=== PATIENT | male | born 1970 | race Caucasian/White ===

== ENCOUNTER 2018-11-03 03:03 | Emergency (ER) | payer OTHER ==
[~2018-11-03] VITALS: Ht 167.6 cm; Wt 75.5 kg
[2018-11-03 03:08] VITALS: Ht 167.6 cm; Wt 75.5 kg
[2018-11-03] MEDS ORDERED: ONDANSETRON (ODT) 4 MG TAB ODT STA (03:48)
[2018-11-03] MEDS ORDERED: SOD CHLORIDE 0.9% 1,000 ML IV STA (03:48)
[2018-11-03] MEDS ORDERED: FAMOTIDINE 20 MG INJ IV STA (03:48)
[2018-11-03] MEDS ORDERED: LIDOCAINE/MYLANTA 40 ML BTL PO STA (03:48)
--- NOTE | 2018-11-03 03:54 | ERD ---
ER Documentation Chief Complaint Chief Complaint DIARRHEA X 3 DAYS, VOMITING, FEVER HPI This is a 48-year-old male with a history of diabetes mellitus and high cholesterol who presents ED with complaints of nausea vomiting and diarrhea over the past 3 days. Patient states that he has had 12 episodes of diarrhea today and has had 2 episodes of vomiting over the past few days. Admits to abdominal cramping associated with nausea vomiting and diarrhea. Patient admits to feeling warm but has not taken temperature. Denies chills, hemoptysis, melena, hematochezia, constipation, hematemesis, chest pain, shortness of breath, and a ll other symptoms. No recent sick contact or recent travel. No mucus in stool. Patient is requesting antidiarrhea medication. Patient states that he has not taken his diabetes medication in 1 week. Patient is unsure what medications he is taking ROS All systems reviewed and are negative except as per history of present illness. Medications Home Meds Active Scripts Loperamide Hcl* (Imodium*) 2 Mg Capsule, 2 MG PO .AFTER EA LOOSE BM PRN for DIARRHEA, #10 TAB Prov:MAU GUERRERO PA-C 11/03/18 Dicyclomine HCl (Dicyclomine HCl) 10 Mg Capsule, 10 MG PO TID PRN for ABDOMINAL CRAMPING, #20 CAP Prov:MAU GUERRERO PA-C 11/03/18 Ondansetron (Ondansetron Odt) 4 Mg Tab.rapdis, 4 MG PO Q6H PRN for NAUSEA AND/OR VOMITING, #10 TAB Prov:MAU GUERRERO PA-C 11/03/18 FmHx Family History: No diabetes Physical Exam Vitals Vital Signs Date Temp Pulse Resp B/P (MAP) Pulse Ox O2 O2 Flow FiO2 Time Delivery Rate 11/03/18 98.8 94 16 132/87 98 03:08 (102) Physical Exam Physical Exam Vitals signs: Reviewed by me. General: Well developed, well nourished, in no acute distress. Patient is awake and alert. Head: Normocephalic, atraumatic. Eyes: Normal conjunctiva, Pupils PERRLA, EOM intact grossly ENT: Pharynx is clear, Moist mucous membranes, external ears, nose and mouth normal Neck: Supple, no masses, lymphadenopathy or JVD Respiratory: Clear to auscultation bilaterally with no wheezing, rhonchi, rales, no distress Cardiovascular: RRR, no murmurs, rubs, or gallops Abdominal: Soft, nondistended, no peritoneal signs, no rigidity, no surgical abdomen, bowel sounds present all 4 quadrants, nontender light deep palpation all 4 quadrants, McBurney's point nontender, no rebound tenderness, Draper sign negative Neurologic: Alert and oriented, moving all extremities, normal speech, no focal weakness, no cerebellar signs. Normal mentation Skin: warm and dry, No rash Psych: Normal mood Result Diagram: 11/03/1840311/03/18403 Results 24 hrs Laboratory Tests Test 11/03/18 04:04 White Blood Count 6.9 10^3/ul Red Blood Count 5.32 10^6/ul Hemoglobin 16.3 g/dl Hematocrit 45.4 % Mean Corpuscular Volume 85.3 fl Mean Corpuscular Hemoglobin 30.6 pg Mean Corpuscular Hemoglobin Concent 35.9 g/dl Red Cell Distribution Width 12.1 % Platelet Count 226 10^3/UL Mean Platelet Volume 11.7 fl Immature Granulocytes % 0.300 % Neutrophils % 65.6 % Lymphocytes % 11.6 % Monocytes % 10.4 % Eosinophils % 11.7 % Basophils % 0.4 % Nucleated Red Blood Cells % 0.0 /100WBC Immature Granulocytes # 0.020 10^3/ul Neutrophils # 4.5 10^3/ul Lymphocytes # 0.8 10^3/ul Monocytes # 0.7 10^3/ul Eosinophils # 0.8 10^3/ul Basophils # 0.0 10^3/ul Nucleated Red Blood Cells # 0.0 10^3/ul Sodium Level 139 mmol/L Potassium Level 4.1 mmol/L Chloride Level 103 mmol/L Carbon Dioxide Level 22 mmol/L Anion Gap 14 Blood Urea Nitrogen 17 mg/dl Creatinine 0.90 mg/dl Est Glomerular Filtrat Rate mL/min > 60 mL/min Glucose Level 216 mg/dl Calcium Level 9.2 mg/dl Total Bilirubin 1.6 mg/dl Direct Bilirubin 0.00 mg/dl Indirect Bilirubin 1.6 mg/dl Aspartate Amino Transf (AST/SGOT) 31 IU/L Alanine Aminotransferase (ALT/SGPT) 31 IU/L Alkaline Phosphatase 158 IU/L Total Protein 7.6 g/dl Albumin 4.4 g/dl Globulin 3.20 g/dl Albumin/Globulin Ratio 1.37 Lipase 51 U/L Current Medications Medications Dose Sig/Ashvin Start Time Status Last (Trade) Ordered Route PRN Stop Time Admin Dose Reason Admin Ondansetron 4 mg ONCE STAT 11/03/18 DC 11/03/18 HCl (Zofran ODT 03:48 04:01 Odt) 11/03/18 03:50 Dicyclomine 10 mg ONCE ONCE 11/03/18 DC 11/03/18 HCl PO 04:00 04:01 (Bentyl) 11/03/18 04:01 Sodium 1,000 ml @ Q1H STAT 11/03/18 DC 11/03/18 Chloride 1,000 mls/hr IV 03:48 04:01 11/03/18 04:47 Famotidine 20 mg ONCE STAT 11/03/18 DC 11/03/18 (Pepcid Iv) IV 03:48 04:01 11/03/18 03:50 40 ml ONCE STAT 11/03/18 DC 11/03/18 Miscellaneous PO 03:48 04:01 Medication 11/03/18 03:50 (Gi Cocktail (2)) Procedures/MDM LAB INTERPRETATION: Interpretation text CBC shows no evidence of hemorrhage or infection Chemistry shows no evidence of significant electrolyte abnormalities or renal insufficiency Liver function test shows a mildly elevated total bilirubin of 1.6, indirect bilirubin 1.6, alkaline phosphatase 158 but otherwise no evidence of acute biliary or hepatic dysfunction Lipase shows no evidence of acute pancreatitis ER COURSE: The patient was given GI cocktail, Pepcid, Zofran and IV fluids The medication was well tolerated and the patient reports improvement in symptoms. The patient was stable throughout ED course. I kept the patient and/or family informed of laboratory and diagnostic imaging results throughout the emergency room course. The patient was promptly evaluated and a treatment plan was devised based on H&P and other data. This plan was discussed with the patient who agreed and had no further questions or concerns prior to discharge. MEDICAL DECISION MAKING This is a 48-year-old male presents ED with complaints of nausea vomiting and diarrhea over the past few days. This is likely a gastroenteritis. Patient is resting peacefully in room and has moist mucous membranes and good skin turgor. Patient was given Zofran Pepcid and GI cocktail in the emergency department and reports feeling better.. Patient had no episodes of vomiting in the emergency department. Patient's abdomen is nontender to palpation during Examination and at discharge so i doubt gastro intestinal emergency. Patient is requesting anti diarrhea medication as he is having a hard time sleeping because he is having to get up to use the restroom so frequently. History and physical examination other data not consistent with emergent processes including but not limited to cholecystitis, appendicitis, small bowel obstruction, perforated viscus, among others. Patient's vitals are stable she can be managed with close outpatient follow-up. Advised patient to follow-up with primary care in 48 hours. Return to ED with any worsening symptoms DISPOSITION PLAN: We discussed follow up with the patient's primary care doctor within 24 to 48 hours. Patient counseled regarding my diagnostic impression and care plan. Prior to discharge all questions answered. Pt agrees with treatment plan and understands strict return precautions. Precautionary instructions provided including instructions to return to the ER if not improving or for any worsening or changing symptoms or concerns. SPECIALIST FOLLOW UP RECOMMENDED: None Patient has been advised to follow up with primary care in 1-2 days. Disclaimer: Inadvertent spelling and grammatical errors are likely due to EHR/dictation software use and do not reflect on the overall quality of patient care. Also, please note that the electronic time recorded on this note does not necessarily reflect the actual time of the patient encounter. Blood Pressure Assessment: Patient's blood pressure was elevated (>120/80) but appears stable without evidence of hypertension emergency or urgency. The patient was counseled about the risks of hypertension and urged to pursue outpatient monitoring and therapy within a week with their primary care physician. Departure Diagnosis: Primary Impression: Diarrhea Diarrhea type: unspecified type Qualified Codes: R19.7 - Diarrhea, unspecified Additional Impression: Nausea and vomiting Vomiting type: unspecified Vomiting Intractability: non-intractable Qualified Codes: R11.2 - Nausea with vomiting, unspecified Condition: Stable Patient Instructions: Treating Diarrhea, Self-Care for Vomiting and Diarrhea [facility] Additional Instructions: Paciente aconseja volver a Departamento de urgencias inmediatamente para sntomas nuevos o que empeoran . Paciente aconseja posteriores con el PCP en 1-2 calvert . Paciente verbaliza la comprehensin y est de acuerdo con el tratamiento y el curso de accin. Si el paciente no tiene ninguna de atencin primaria pueden seguir con [facility] [address] [place] [address] o [facility] + [address] [address] MAU GUERRERO PA-C Nov 03, 2018 03:54
[2018-11-03] MEDS ORDERED: DICYCLOMINE 10 MG CAP PO ONE (04:00)
[2018-11-03] MEDS ORDERED: LOPE2CAP PO (04:34)
[2018-11-03] MEDS ORDERED: ONDA4TAB14 PO (04:34)
[2018-11-03] MEDS ORDERED: DICY10CA40 PO (04:34)
[2018-11-03 05:16] VITALS: BP 129/74; PULSE 75; RESP 16
== END 2018-11-03 05:17 | disposition home or self-care (01) ==
LOC: FTE 03:03
DX: R19.7 Diarrhea, unspecified (principal); R11.2 Nausea with vomiting, unspecified; E11.9 Type 2 diabetes mellitus without complications
CPT/HCPCS: 36415; 80053; 83690; 85025; 96361; 96374; J7030; Z7502; Z7610